=== PATIENT | female | born 1935 | race Caucasian/White ===

== ENCOUNTER → 2018-01-28 | Outpatient (CLI) | payer OTHER, MEDICAID | LOC: BMCIMAGING 12:34 | PROVIDERS: ATTEND Family Medicine | DX: Z12.31 Encounter for screening mammogram for malignant neoplasm of breast (principal); Z85.3 Personal history of malignant neoplasm of breast; Z90.13 Acquired absence of bilateral breasts and nipples ==

== ENCOUNTER 2018-10-07 13:41 | Observation (INO) | payer OTHER, MEDICAID ==
[2018-10-07 14:16] LABS: PLATELET COUNT 254 10^3/uL (150-400)
[2018-10-07 15:00] LABS: INR 1.1 (0.83-1.16); PROTIME(PATIENT) 13.8 SEC (12.0-15.0)
[2018-10-07] MEDS ORDERED: CEPHALEXIN 500 MG CAP PO ONE (15:31)
--- NOTE | 2018-10-07 16:30 | EDPHY ---
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 She describes the dizziness as a feeling of lightheadedness as if she is "on drugs or drunk". She uses a walker at all times because she has persistent balance difficulty related to her previous stroke. She feels that her walking has worsened because of the dizziness and feels that she has to hold on to things as she walks. This is new for her. She has been feeling some dizziness and lightheadedness over the past month but states that it has been worsening recently. She lives in assisted living and has a nurse that checks on her. She was treated for urinary tract infection within the month and completed a course of antibiotics. Blood work a couple of weeks ago showed a low sodium and she was advised to increase her salt intake. Today she was feeling weak enough and dizzy enough that she was not able to participate in an easy exercise class that she usually does without difficulty. When checked it was noted that her heart rate seemed irregular. She has a history of atrial fibrillation (on metoprolol). REVIEW OF SYSTEMS: A ten system review of systems was performed and is negative with the exception of the items mentioned in the HPI. Past medical history: 1. Left MCA stroke in 2016 2. Atrial fibrillation 3. Hospitalized with hyponatremia in the remote past 4. History of breast cancer status post bilateral mastectomies with 2 additional lumpectomies and breast reconstruction 5. Colon cancer status post partial colectomy in 2014 Social history: She lives in assisted living at [facility]. She formally lived in [place]. She has family in the area. She does not use tobacco or alcohol products. General Appearance: Alert. Vital signs reviewed. Initial heart rate 105, blood pressure 145/86, respiratory rate 16, oxygen saturation 97% on room air. Afebrile. Head: Normocephalic atraumatic. Eyes: Pupils equal and round, no conjunctival injection, no discharge. Anicteric. ENT, Mouth: Mucous membranes are moist, no oropharyngeal erythema or edema. Neck: No lymphadenopathy, supple. Respiratory: Lungs are clear to auscultation; no wheezes, rales, or rhonchi. Cardiovascular: Regular rate and rhythm with extrasystoles; no murmur, rub, or gallop. Gastrointestinal: Abdomen is soft and nontender, no masses or organomegaly, bowel sounds normal. Skin: Warm and dry, no rashes on exposed skin, normal color. Back: Nontender to palpation over the thoracolumbar spine. No CVAT. Extremities: No lower extremity edema, no calf tenderness or swelling. Neurological: Alert and oriented. Moving all four extremities easily and equally. Cranial nerves II through XII are examined and are intact (visual acuity not tested). Strength is 5 over 5 on the left and 4/5 on the right with testing of all major motor groups. Sensation is intact to light touch over all 4 extremities. She is able to walk with someone supporting her on the right. [id number] is performed accurately. Psychiatric: Normal affect. - Personal History Current Tetanus Diphtheria and Acellular Pertussis (TDAP): Yes - Medical/Surgical History Hx Asthma: No Hx Chronic Respiratory Disease: No Hx Diabetes: No Hx Cardiac Disease: Yes Hx Renal Disease: No Hx Cirrhosis: No Hx Alcoholism: No Hx HIV/AIDS: No Hx Splenectomy or Spleen Trauma: No Other PMH: A-Fib. CVA - 2016. Breast Cancer. Colon Cancer. Colectomy. - Social History Smoking Status: Never smoked Constitutional: Initial Vital Signs Temperature (C) 36.7 C 10/07/18 13:45 Heart Rate 105 H 10/07/18 13:45 Respiratory Rate 16 10/07/18 13:45 Blood Pressure 145/86 H 10/07/18 13:45 O2 Sat (%) 97 10/07/18 13:45 O2 Delivery Mode Room Air Allergies/Adverse Reactions: morphine Allergy (Severe, Verified 10/07/18 16:54) Itching oxycodone Allergy (Unknown, Verified 10/07/18 16:54) Unknown prednisone Allergy (Unknown, Verified 10/07/18 16:54) Unknown Sulfa (Sulfonamide Antibiotics) Allergy (Unknown, Verified 10/07/18 16:54) Unknown Home Medications: Medication Instructions Recorded Apixaban [Eliquis] 2.5 mg PO BID 10/07/18 Cholecalciferol Vit D3 [Vitamin D3 2,000 units PO DAILY 10/07/18 2000 units tab (OTC)] Cyanocobalamin [Vitamin B12 (*)] 100 mcg PO DAILY 10/07/18 Herbals/Supplements -Info Only 1 ea PO AD 10/07/18 Lactase [Lactase 3000 Unit (*)] 3,000 unit PO AC 10/07/18 Losartan Potassium 100 mg PO HS 10/07/18 Magnesium Hydroxide [Milk of 15 - 30 ml PO DAILY PRN 10/07/18 Magnesia] Metoprolol Tartrate [Lopressor 100 100 mg PO HS 10/07/18 mg (*)] [place]-3 Fatty Acids [Fish Oil 1000 1,000 mg PO DAILY 10/07/18 mg (*)] Omeprazole 20 mg PO DAILY 10/07/18 Ondansetron Odt [Zofran Odt 4 mg 4 mg PO Q6HRS PRN 10/07/18 (*)] Sennosides [Senokot] 17.2 mg PO DAILY PRN 10/07/18 Sennosides [Senokot] 17.2 mg PO HS 10/07/18 Simethicone [Gas-X] 125 mg PO QID PRN 10/07/18 amLODIPine BESYLATE [Norvasc 5 mg 5 mg PO HS 10/07/18 (*)] diphenhydrAMINE [Benadryl 25 MG 25 mg PO HS PRN 10/07/18 (*)] rOPINIRole HCL [Requip] 0.25 mg PO BID@12,20 10/07/18 Medical Decision Making - Diagnostics EKG Interpretation: 12 lead EKG is interpreted in [place] by emergency department physician. Initial EKG shows ventricular trigeminy. ED Course/Re-evaluation: 83-year-old female who lives in assisted living with complaints of lightheadedness and dizziness. She has not fainted, but has thought that she might do so. The dizziness does not sound like vertigo. The symptoms are prevalent enough that they have been impacting her daily activities in keeping her from moving about as she normally would. There was some concern about an irregular pulse at [facility]. She has a history of atrial fibrillation for which she has been taking metoprolol. She is also taking blood pressure medication with a blood pressure of 145/86 in the emergency department. I have not seen atrial fibrillation--not on her EKG and not on the corporate communications intern. However arrhythmia is certainly a strong consideration in this setting. She is not appear dehydrated and there is nothing in her history to suggest blood loss. She is not febrile and does not complain of pain anywhere. She was recently treated for urinary tract infection. Today's urine is positive for nitrates, leuks that site esterase, bacteria 1+, and white blood cells. She is not symptomatic but I am concerned that this could indicate a urinary tract infection. She was given oral Keflex in the emergency department. She has right-sided weakness and difficulty with balance related to her MCA stroke. Head scan today does not show evidence of bleed or stroke. If today's complaints are related to stroke she would not be eligible for tPA. I do not think that stroke is the most likely possibility. She does have a history of both breast and colon cancer. No evidence of intracranial mass, however the CT scan was performed without contrast. At this point in time I am not recommending additional brain imaging. Differential Diagnosis: Dizziness including but not limited to stroke, cardiac arrhythmia, orthostatic hypotension, peripheral and central causes of vertigo, orthostatic causes including dehydration, and blood loss. - Data Points Laboratory Results: Laboratory Results 10/07/18 14:00 10/07/18 14:00 Microbiology Results: MICROBIOLOGY 10/07/18 14:35 Urine,Clean Catch Urine Culture - Preliminary Gram Neg Bernardo Lactose Digital Hardware Design Engineer One [place] Type Medications Given: Acetaminophen (Tylenol) 650 mg PO Q4HRS PRN PRN Reason: Pain, Mild/Fever, Can Take PO Stop: 04/05/19 17:13 Last Admin: 10/08/18 10:45 Dose: 650 mg Amlodipine Besylate (Norvasc) 5 mg PO HS ANEUDY Stop: 04/05/19 20:59 Last Admin: 10/07/18 20:26 Dose: 5 mg Cholecalciferol (Vitamin D) 2,000 units PO DAILY ANEUDY Stop: 04/06/19 08:59 Last Admin: 10/08/18 08:20 Dose: 2,000 units Sodium Chloride (Ns) 1,000 mls @ 100 mls/hr IV CONT ANEUDY Stop: 04/05/19 17:14 Last Admin: 10/08/18 06:15 Dose: 1,000 mls Lactase (Lactase) 3,000 unit PO AC ANEUDY Stop: 04/05/19 17:29 Last Admin: 10/08/18 11:24 Dose: 3,000 unit Metoprolol Succinate (Toprol Xl) 50 mg PO DAILY ANEUDY Stop: 04/06/19 11:29 Last Admin: 10/08/18 11:34 Dose: 50 mg [id number] Ethyl Esters (Fish Oil) 1,000 mg PO DAILY ANEUDY Stop: 04/06/19 08:59 Last Admin: 10/08/18 08:20 Dose: 1,000 mg Pantoprazole Sodium (Protonix) 40 mg PO DAILY ANEUDY Stop: 04/06/19 08:59 Last Admin: 10/08/18 08:20 Dose: 40 mg Ropinirole HCl (Requip) 0.25 mg PO BID@12,20 ANEUDY Stop: 04/05/19 19:59 Last Admin: 10/08/18 11:24 Dose: 0.25 mg Senna (Senokot) 2 tab PO HS ANEUDY Stop: 04/05/19 20:59 Last Admin: 10/07/18 20:26 Dose: 2 tab Simethicone (Mylicon) 120 mg PO QID PRN PRN Reason: GAS Stop: 04/05/19 18:44 Last Admin: 10/07/18 20:26 Dose: 120 mg Vitamin B Complex (Vitamin B12) 100 mcg PO DAILY ANEUDY Stop: 04/06/19 08:59 Last Admin: 10/08/18 08:20 Dose: 100 mcg Discontinued Medications Apixaban (Eliquis) 2.5 mg PO BID ANEUDY Stop: 04/05/19 20:59 Last Admin: 10/08/18 08:27 Dose: 2.5 mg Cephalexin HCl (Keflex) 500 mg PO EDNOW ONE PRN Reason: Protocol Stop: 10/07/18 15:32 Last Admin: 10/07/18 15:40 Dose: 500 mg Point of Care Test Results: Chemistry 10/07/18 14:09 POC Troponin I 0.00 ng/mL ng/mL (0.00-0.08) Departure - Departure Disposition: [facility] Acute Clinical Impression: Dizziness Urinary tract infection Qualifiers: Urinary tract infection type: acute cystitis Hematuria presence: without hematuria Qualified Code(s): N30.00 - Acute cystitis without hematuria Condition: Fair
[2018-10-07] MEDS ORDERED: PROMETHAZINE HCL 25 MG/ML INJ IVP PRN (17:14)
[2018-10-07] MEDS ORDERED: HYDROCODONE/APAP 5/325 TAB PO PRN (17:14)
[2018-10-07] MEDS ORDERED: ONDANSETRON DISINTEGRATING 4 MG TAB PO PRN (17:14)
[2018-10-07] MEDS ORDERED: ONDANSETRON 4 MG/2 ML VIAL IVP PRN (17:14)
[2018-10-07] MEDS ORDERED: ACETAMINOPHEN 325 MG TAB PO PRN (17:14)
[2018-10-07] MEDS ORDERED: oxyCODONE IR 5 MG TAB PO PRN (17:14)
[2018-10-07] MEDS ORDERED: MAGNESIUM HYDROXIDE 30 ML UDCUP PO PRN (17:18)
[2018-10-07] MEDS ORDERED: SENNOSIDES 1 TAB PO PRN (17:18)
--- NOTE | 2018-10-07 17:25 | PDGENHP ---
History and Physical - Chief Complaint dizziness, lightheadedness - History of Present Illness 83 yo F with PMH that includes large left MCA stroke, as well as a fib, breast and colon cancer and HTN who presents with dizziness and lightheadedness that has been present for at least the last month but was much worse today. She notes that she has had issues with balance and right sided weakness since her stroke, and that has been largely unchanged. She does use a walker and feels as if she needs to hold onto things when she is walking without it, however today while in PT at the assisted living facility she resides in she developed significantly worse dizziness and lightheadedness. She states she did not feel that it was vertigo-like in nature, also denies feeling that she was going to faint, but states she felt very strange, as if her eyes were 'going boing' and as if she were drunk or on drugs. She states that has been the issue she has been having intermittently, worse with exertion, and significantly worse today. She states she is on medication for her BP and for her a fib, and these have not been changed in several years but she wonders if something is being overtreated regardless. She recently moved to [place] and did establish care with cardiology but has not seen them since her initial visit in November 2017. At that time she was told that she should continue her current medications. She notes that whenever her BP is checked it is always 'good', frequently with systolics in the 130s or lower. She is not sure what her usual HR is but states she has been told on occasion that it was noted to be in the 30s and on my exam was in the 50s. History Information - Allergies/Home Medication List Allergies/Adverse Reactions: morphine Allergy (Severe, Verified 10/07/18 16:54) Itching oxycodone Allergy (Unknown, Verified 10/07/18 16:54) Unknown prednisone Allergy (Unknown, Verified 10/07/18 16:54) Unknown Sulfa (Sulfonamide Antibiotics) Allergy (Unknown, Verified 10/07/18 16:54) Unknown Home Medications: Apixaban [Eliquis] 2.5 mg PO BID 10/07/18 [Last Taken Unknown] Cholecalciferol Vit D3 [Vitamin D3 2000 units tab (OTC)] 2,000 units PO DAILY [Last Taken Unknown] Cyanocobalamin [Vitamin B12 (*)] 100 mcg PO DAILY 10/07/18 [Last Taken Unknown] Herbals/Supplements -Info Only 1 ea PO AD 10/07/18 [Last Taken Unknown] Lactase [Lactase 3000 Unit (*)] 3,000 unit PO AC 10/07/18 [Last Taken Unknown] Losartan Potassium 100 mg PO HS 10/07/18 [Last Taken Unknown] Magnesium Hydroxide [Milk of Magnesia] 15 - 30 ml PO DAILY PRN 10/07/18 [Last Taken Unknown] Metoprolol Tartrate [Lopressor 100 mg (*)] 100 mg PO HS 10/07/18 [Last Taken Unknown] [place]-3 Fatty Acids [Fish Oil 1000 mg (*)] 1,000 mg PO DAILY 10/07/18 [Last Taken Unknown] Omeprazole 20 mg PO DAILY 10/07/18 [Last Taken Unknown] Ondansetron Odt [Zofran Odt 4 mg (*)] 4 mg PO Q6HRS PRN 10/07/18 [Last Taken Unknown] Sennosides [Senokot] 17.2 mg PO DAILY PRN 10/07/18 [Last Taken Unknown] Sennosides [Senokot] 17.2 mg PO HS 10/07/18 [Last Taken Unknown] Simethicone [Gas-X] 125 mg PO QID PRN 10/07/18 [Last Taken Unknown] amLODIPine BESYLATE [Norvasc 5 mg (*)] 5 mg PO HS 10/07/18 [Last Taken Unknown] diphenhydrAMINE [Benadryl 25 MG (*)] 25 mg PO HS PRN 10/07/18 [Last Taken Unknown] rOPINIRole HCL [Requip] 0.25 mg PO BID@12,20 10/07/18 [Last Taken Unknown] I have personally reviewed and updated: family history, medical history, social history, surgical history - Past Medical History atrial fibrillation, cancer (colon and breast), CVA (residual balance issues and right sided weakness), GERD, hypertension Additional medical history: restless leg syndrome - Surgical History Reports: cancer surgery (mastectomy, partial colectomy) - Family History Positive for: non-pertinent - Social History Smoking Status: Never smoked Alcohol Use: None Drug Use: None Additional social history: resides at [facility] Review of Systems Review of Systems: ROS: 10pt was reviewed & negative except for what was stated in HPI & below Physical Exam Physical Exam: Temp Pulse Resp BP Pulse Ox 36.7 C 78 15 116/60 95 10/07/18 15:43 10/07/18 15:43 10/07/18 15:43 10/07/18 15:43 10/07/18 15:43 Constitutional: no apparent distress, appears nourished Eyes: PERRL Ears, Nose, Mouth, Throat: moist mucous membranes, hearing normal Cardiovascular: regular rate and rhythym, no murmur, rub, or gallop, No edema Respiratory: no respiratory distress, no rales or rhonchi Gastrointestinal: normoactive bowel sounds, soft, non-tender abdomen Genitourinary: no bladder tenderness Skin: warm, normal color Musculoskeletal: full muscle strength Neurologic: AAOx3 Psychiatric: interacting appropriately, not anxious, not encephalopathic Lab Data & Imaging Review 10/07/18 14:00 10/07/18 14:00 WBC 8.57 10^3/uL (3.80-9.50) 10/07/18 14:00 RBC 4.28 10^6/uL (4.18-5.33) 10/07/18 14:00 Hgb 15.4 g/dL (12.6-16.3) 10/07/18 14:00 Hct 43.2 % (38.0-47.0) 10/07/18 14:00 MCV 100.9 fL (81.5-99.8) H 10/07/18 14:00 MCH 36.0 pg (27.9-34.1) H 10/07/18 14:00 MCHC 35.6 g/dL (32.4-36.7) 10/07/18 14:00 RDW 12.3 % (11.5-15.2) 10/07/18 14:00 Plt Count 254 10^3/uL (150-400) 10/07/18 14:00 MPV 9.4 fL (8.7-11.7) 10/07/18 14:00 Neut % (Auto) 59.1 % (39.3-74.2) 10/07/18 14:00 Lymph % (Auto) 29.6 % (15.0-45.0) 10/07/18 14:00 [place] % (Auto) 8.9 % (4.5-13.0) 10/07/18 14:00 Eos % (Auto) 1.2 % (0.6-7.6) 10/07/18 14:00 Baso % (Auto) 0.7 % (0.3-1.7) 10/07/18 14:00 Nucleat RBC Rel Count 0.0 % (0.0-0.2) 10/07/18 14:00 Absolute Neuts (auto) 5.07 10^3/uL (1.70-6.50) 10/07/18 14:00 Absolute Lymphs (auto) 2.54 10^3/uL (1.00-3.00) 10/07/18 14:00 Absolute Monos (auto) 0.76 10^3/uL (0.30-0.80) 10/07/18 14:00 Absolute Eos (auto) 0.10 10^3/uL (0.03-0.40) 10/07/18 14:00 Absolute Basos (auto) 0.06 10^3/uL (0.02-0.10) 10/07/18 14:00 Absolute Nucleated RBC 0.00 10^3/uL (0-0.01) 10/07/18 14:00 Immature Gran % 0.5 % (0.0-1.1) 10/07/18 14:00 Immature Gran # 0.04 10^3/uL (0.00-0.10) 10/07/18 14:00 PT 13.8 SEC (12.0-15.0) 10/07/18 14:35 INR 1.10 (0.83-1.16) 10/07/18 14:35 APTT 27.8 SEC (23.0-38.0) 10/07/18 14:35 Sodium 134 mEq/L (135-145) L 10/07/18 14:00 Potassium 4.7 mEq/L (3.5-5.2) 10/07/18 14:00 Chloride 101 mEq/L (97-110) 10/07/18 14:00 Carbon Dioxide 22 mEq/l (22-31) 10/07/18 14:00 Anion Gap 11 mEq/L (6-14) 10/07/18 14:00 BUN 16 mg/dL (7-23) 10/07/18 14:00 Creatinine 0.8 mg/dL (0.6-1.0) 10/07/18 14:00 Estimated GFR > 60 10/07/18 14:00 Glucose 100 mg/dL (70-100) 10/07/18 14:00 Calcium 9.7 mg/dL (8.5-10.4) 10/07/18 14:00 POC Troponin I 0.00 ng/mL (0.00-0.08) 10/07/18 14:09 Urine Color YELLOW 10/07/18 14:35 Urine Appearance HAZY 10/07/18 14:35 Urine pH 6.0 (5.0-7.5) 10/07/18 14:35 Ur Specific [place] 1.008 (1.002-1.030) 10/07/18 14:35 Urine Protein NEGATIVE (NEGATIVE) 10/07/18 14:35 Urine Ketones NEGATIVE (NEGATIVE) 10/07/18 14:35 Urine Blood NEGATIVE (NEGATIVE) 10/07/18 14:35 Urine Nitrate POSITIVE (NEGATIVE) H 10/07/18 14:35 Urine Bilirubin NEGATIVE (NEGATIVE) 10/07/18 14:35 Urine Urobilinogen NEGATIVE EU (0.2-1.0) 10/07/18 14:35 Ur Leukocyte Esterase 1+ (NEGATIVE) H 10/07/18 14:35 Urine RBC 1-3 /hpf (0-3) 10/07/18 14:35 Urine WBC 15-25 /hpf (0-3) H 10/07/18 14:35 Ur Epithelial Cells NONE SEEN /lpf (NONE-1+) 10/07/18 14:35 Urine Bacteria 1+ /hpf (NONE SEEN) H 10/07/18 14:35 Urine Mucus TRACE /lpf (NONE-1+) 10/07/18 14:35 Urine Glucose NEGATIVE (NEGATIVE) 10/07/18 14:35 Visualized and Interpreted imaging results: Yes Interpretation: head CT: encephalomalacia related to old left mca stroke Visualized and Interpreted EKG results: Yes EKG Interpretation: Positive for: normal sinsus rhythm EKG additional interpertation: ventricular trigeminy Assessment & Plan Assessment: 83 yo F with PMH of CVA, p a fib, HTN presenting with dizziness and lightheadedness on and off for 1 month # dizzy/lightheaded: patient notes these sxs have been present for at least a month, worse with exertion. Overall does not sound c/w vertigo and perhaps some element of near syncope. Given intermittent bradycardia and BB usage, query symptomatic bradycardia or tachy/shyann syndrome given hx of a fib. Plan to monitor on tele, will hold metoprolol for now as well as losartan given BP of 110/60 in ER. Monitor on tele, serial trops, echo and cardiology consult in am. # p a fib: with HR in the 50s on exam but 110 on arrival and patient notes has been recently in the 30s, holding BB for now unless HR begins to trend up, continue apixaban # HTN: as above, holding BP meds given hypotension on arrival with sxs potentially related to low bp # bacturia/pyuria: no urinary complaints, per patient recently treated for UTI, will await urine cultures, was given keflex in ER # CVA: with residual balance issues and right sided weakness, pt/ot to eval # breast/colon cancer: both in remission reportedly, she has recently established care with oncology here # observation status # Patient new to my care. Old records reviewed and summarized as above. Care plan reviewed with ER doctor including monitoring on tele overnight.
[2018-10-07] MEDS ORDERED: SIMETHICONE 80 MG TAB CHEW PO PRN (18:45)
[2018-10-07] MEDS: LACTASE 3,000 UNIT TAB PO SCH (20:18)
[2018-10-07] MEDS: SENNOSIDES 1 TAB PO SCH (20:26)
[2018-10-07] MEDS: amLODIPine BESYLATE 5 MG TAB PO SCH (20:26)
[2018-10-07] MEDS: APIXABAN 2.5 MG TAB PO SCH (20:27)
[2018-10-07] MEDS: NS 1,000 ML IV SCH (20:31)
--- NOTE | 2018-10-07 20:54 | CPEKG ---
Test Reason : OPEN Blood Pressure : / mmHG Vent. Rate : 074 BPM Atrial Rate : 076 BPM P-R Int : 178 ms QRS Dur : 098 ms QT Int : 409 ms P-R-T Axes : 073 029 035 degrees QTc Int : 454 ms Sinus rhythm Ventricular trigeminy Low voltage, precordial leads Abnormal R-wave progression, early transition Confirmed by Neto Florentino ([id number]) on 10/07/2018 8:53:14 PM Referred By: NETO FLORENTINO Confirmed By:Neto Florentino
[2018-10-07] MEDS ORDERED: diphenhydrAMINE 25 MG CAP PO PRN (21:50)
[2018-10-08] MEDS: NS 1,000 ML IV SCH (06:15)
[2018-10-08] MEDS: PANTOPRAZOLE SODIUM 40 MG TAB PO SCH (08:20)
[2018-10-08] MEDS: CHOLECALCIFEROL VIT D3 2,000 UNITS TAB/CAP PO SCH (08:20)
[2018-10-08] MEDS: LACTASE 3,000 UNIT TAB PO SCH ×3 (08:20→18:00)
[2018-10-08] MEDS: CYANO/VITAMIN B12 100 MCG TAB PO SCH (08:20)
[2018-10-08] MEDS: OMEGA-3 FATTY ACIDS 1,000 MG CAP PO SCH (08:20)
[2018-10-08] MEDS: APIXABAN 2.5 MG TAB PO SCH (08:27)
[2018-10-08] MEDS: METOPROLOL SUCCINATE XR 50 MG TAB PO SCH (11:34)
--- NOTE | 2018-10-08 13:28 | ECHO ---
[email or web address] [address] [address] Main: [phone] Echocardiography Examination Transthoracic Name: JOSÉ DRIVER MR#: [id number] Study Date: 10/08/2018 Study Time: 11:28 AM Date of : 1935 Age: 83 year(s) Height: 160 cm (63 in.) Weight: 63.5 kg (140 lb.) BSA: 1.66 m2 Gender: Female Examination: Echo Contrast: Image Quality: Adequate Rhythm: Heart Rate: BP: 141 mmHg/84 mmHg Indication: PAF/lightheadedness Procedure Staff Referring Physician: Market Research Associate: Mya Day [facility] Reading Physician: Gómez Leal MD Requesting Provider: Ordering Physician: Jacinto Negrete NP Indication: PAF/lightheadedness Measurements Chambers AV/MV Label Value Normal Value Label Value Normal Value LVDd, 2D 4.1 cm (3.9cm - 5.3cm) AV PGmean 3 mmHg LVDs, 2D 2.3 cm (2.1cm - 4cm) MV E Vmax 0.76 m/s IVSd, 2D 0.8 cm (0.6cm - 1.1cm) MV A Vmax 0.54 m/s LVPWd, 2D 0.8 cm MV E/A 1.41 LVEF, BP 74 % (55% - 70%) MV E/E' lateral 7.6 LVEF, 2D 76 % (54% - 74%) MV E/E' septal 9.4 (0.45 - 1.25) LA Volume, BP 85 ml (22ml - 52ml) MV E' septal 0.08 m/s LADs, 2D 3.4 cm (2.7cm - 3.8cm) MV E' lateral 0.1 m/s LAESV index, BP 51.2 ml/m2 MV E/E' mean 8.44 Additional Vessels MV E' mean 0.09 m/s Label Value Normal Value TV/PV AoAsc 3.4 cm Label Value Normal Value AoRoot, MM 3 cm (2.2cm - 3.7cm) RA Pressure 5 mmHg RVSP 30 mmHg TR Pmax 25 mmHg TR Vmax 2.48 m/s Conclusions Patient: JOSÉ DRIVER Study Date: 10/08/2018 Page 1 of 2 11:28 AM Normal left ventricular size and function. LV EF estimated at 70-75% and calculated at 70 4% by Garnett's. Normal left ventricular free wall thickness without regional wall motion abnormalities. Normal diastolic function. Moderate to severe left atrial enlargement. Normal right-sided chamber dimensions. Normal appearing valvular structures. Mild mitral regurgitation. Mild tricuspid regurgitation with a normal estimated RVSP. Findings Left Ventricle: Diastolic dysfunction is indeterminate.. Left ventricle is normal in size. Normal global systolic left ventricular function. The ejection fraction, measured by Simpsons method, is 74 %. EF range is estimated at 70 % - 75 %. Left ventricle wall thickness is normal. There are no regional wall motion abnormalities. Left ventricular diastolic function parameters are normal. IVS: The septum is intact. Right Ventricle: Normal size right ventricle. Right ventricular wall thickness is normal. Right ventricular systolic function is normal. Left Atrium: The left atrium is moderately to severely dilated. IAS: Atrial septal bowing from left to right. Right Atrium: The right atrium is normal in size. Mitral Valve: Mitral valve appears structurally normal. Mild mitral regurgitation. No mitral valve stenosis. Aortic Valve: Aortic leaflets exhibit normal cuspal separation. No aortic valve regurgitation. There is no aortic stenosis. The aortic valve is trileaflet. Nonspecific leaflet thickening. Tricuspid Valve: Tricuspid valve leaflets are normal in appearance and function. Mild tricuspid regurgitation. No tricuspid valve stenosis. Right Ventricular systolic pressure is measured at 30 mmHg. Pulmonary artery pressure normal. Pulmonic Valve: Pulmonic valve is poorly visualized. Pulmonic leaflets exhibit normal cuspal separation. No pulmonic valve regurgitation is evident. There is no pulmonic valve stenosis. Aorta: The aorta is normal. The aortic root size in M-mode measures 3.0 cm. The ascending aorta measures 3.4 cm. Aorta Measurements AoRoot, MM is 3.0 cm. Pericardium: No pericardial effusion. No pleural effusion present. Exam Details Procedure Ordered: Echo Procedure Status: Routine study Image Quality: Adequate Facility Location: Cardiac Echo 1 (No Signature Object) Patient: JOSÉ LOCKN: [id number] Study Date: 10/08/2018 Page 2 of 2 11:28 AM [id number]
--- NOTE | 2018-10-08 14:02 | GCON ---
[f rep st] CONSULTATION CARDIOLOGY CONSULTATION SUPERVISING GAS LEAK TESTER: Dr. Bernal INDICATION FOR CARDIOLOGY CONSULTATION: Lightheadedness with known history of paroxysmal atrial fibrillation. REQUESTING PHYSICIAN FOR CONSULTATION: Dr. Jennings of hospital services. HISTORY OF PRESENT ILLNESS: The patient is an 83-year-old female. She has been seen by our practice [address] Clyde Marcelo. She has significant past history that includes previous CVA of the left MCA, paroxysmal atrial fibrillation, hypertension, breast cancer, colon cancer. Patient reporting over the last month of ongoing dizziness and lightheadedness. She does admit since her CVA she has always had a mild episode of lightheadedness, but feels that this has worsened in the last month. She states significantly worse yesterday when she was at her senior care facility and performing exercises , stating at a point of near syncope yesterday while doing Kegel exercises. Patient informed the nurse at her skilled facility, felt her pulse, and noted extreme bradycardia with rates down into the 30s. She denies of any actual syncope or syncopal events. She does state during this episode she did feel a "fluttering sensation" in her left upper chest. She denies of any chest pressure or pain. Reports no shortness of breath. EMS was called, and she was brought to the [facility] emergency department. Electrocardiogram was done, which noted to be sinus rhythm, normal axis with no significant ST or T-wave abnormalities. She was noted to have unifocal premature ventricular contractions. Laboratory studies were drawn. She was noted to have a negative troponin. No significant abnormality except mildly hyponatremia with sodium at 134. No significant anemia. Normal white blood cell count. She did undergo CT of the head, which noted no acute intracranial hemorrhage and no evidence of acute ischemia, but old left MCA infarction was noted. She has been admitted to [facility] and been on continuous cardiac monitoring. There, she has maintained sinus rhythm with occasional PVC, but no malignant arrhythmias or pauses were noted. She reports, upon my examination today, continuation of lightheadedness but denies of any chest pressure or pain. She reports no recent fevers, chills, or night sweats. Denies of any orthopnea, PND, or syncopal events. Reporting no symptoms suggesting new TIA or CVA. PAST MEDICAL HISTORY: Includes paroxysmal atrial fibrillation, history of breast cancer, history of colon cancer, previous CVA in 2016 with right-sided residuals of weakness, GERD, hypertension. PAST SURGICAL HISTORY: Includes colon resection and mastectomy complete. FAMILY HISTORY: Noncontributory. SOCIAL HISTORY: She lives at [facility]. She denies of any history of smoking. She reports no alcohol use. She denies of any illicit drug use. ALLERGIES: Include morphine, oxycodone, prednisone, and sulfa. HOME MEDICATIONS: Include Benadryl 25 mg p.o. h.s., Gas-X 125 mg p.o. q.i.d. p.r.n., Zofran 4 mg p.o. q.6 hours p.r.n., 3000 units p.o. a.c., Senokot 17.2 mg p.o. daily p.r.n., Milk of Magnesia 5-30 mL p.o. daily p.r.n., losartan 100 mg p.o. h.s., supplements 1 tablet p.o. daily, Norvasc 5 mg p.o. h.s., metoprolol tartrate 100 mg p.o. h.s., omeprazole 20 mg p.o. daily, vitamin D 2000 units p.o. daily, Eliquis 2.5 mg p.o. b.i.d., fish oil 1000 mg p.o. daily, vitamin B12 1000 mcg p.o. daily, Requip 0.25 mg p.o. b.i.d. 12 and 8 o'clock, Senokot 17.2 mg p.o. h.s. REVIEW OF SYSTEMS: 10-point review of systems done on patient all negative except as mentioned above. PHYSICAL EXAMINATION: GENERAL APPEARANCE: Thin, well-groomed, elderly female. She is alert and oriented to person, place, time, and situation. Appears to be under no acute distress. CURRENT VITAL SIGNS: Blood pressure of 131/68, heart rate of 66, sinus rhythm with occasional PVC noted on monitor, respirations 18, saturating 91% on room air. Temperature of 36.7 degrees Celsius. HEENT: Head is normocephalic. Lips and tongue are pink and moist with no signs of cyanosis. Conjunctivae pink. NECK: Trachea is midline. +2 carotid pulses bilateral. No auscultated bruits. No jugular vein distention. RESPIRATORY: Lungs are clear to auscultation. No rhonchi, rales, or wheezes. No accessory muscle use. No intercostal muscle retraction noted. CARDIAC: Regular rate, regular rhythm. S1, S2. No S3, S4 noted. 2/6 systolic murmur noted along left sternal border. ABDOMEN: Soft, nontender, bowel sounds x4 quadrants. No organomegaly. No palpable masses. SKIN: [place], warm, dry. No cyanosis. No clubbing. No peripheral edema. VASCULAR: +2 carotids bilateral, +2 radials bilateral, +1 dorsal pedal and posterior tibial pulses bilateral. STUDIES: Electrocardiogram as mentioned above. CT of the head as mentioned above. LABORATORY STUDIES: On admission, WBC 8.57, hemoglobin of 15.4, hematocrit of 43.2, platelet count of 254, INR of 1.10. Sodium 134, potassium 4.7, chloride 101, CO2 22, BUN 16, creatinine 0.8, glucose 100, calcium 9.7, troponin of 0.00. UA was done, which showed positive for nitrites, +1 leukocytes, 15-25 WBCs, and 1+ bacteria. Patient noted to have normal troponins x2 during the night. ASSESSMENT AND PLAN: Lightheadedness. Patient reporting worsening lightheadedness. Does state that she has these symptoms when lying, sitting, or standing. Was worse yesterday with activity. Reporting no chest pain. Does feel that she had palpitations. Noted to have bradycardia by nursing staff at her senior care facility. Patient with history of paroxysmal atrial fibrillation. Questioning if potentially arrhythmia as a source of her symptoms. She has been on continuous cardiac monitoring since her hospital admission with no malignant pauses or arrhythmias noted. No atrial fibrillation. At this time, I would like her to get an echocardiogram done to evaluate her cardiac structure and function. We will continue her on continuous cardiac monitoring. Her beta josseline of metoprolol tartrate has been held. I would like to resume her but place her on metoprolol succinate at 50 mg q. day, which should be a better long-acting medication than tartrate. Potentially, if no arrhythmias are identified, we may consider placing patient on a long-term 2-week to 1-month monitor as an outpatient setting. Would like her to get orthostatic blood pressures done today. Paroxysmal atrial fibrillation. Patient with noted history of paroxysmal atrial fibrillation. None has been noted since arrival to the hospital. She has been held on beta josseline due to concerns of bradycardia. Will resume metoprolol succinate as mentioned above. She does have a significant CHADS- VASc score of 5 placing her close to a 9% stroke risk per year. She is currently on Eliquis at 2.5 mg p.o. Twice daily. Per guidelines, this is too low of a dose due to her weight being greater than 60 kg and her creatinine is less than 1.5. We will increase her Eliquis up to 5 mg p.o. b.i.d. Echocardiogram as above. I will have them draw TSH level on her for evaluation due to recent concerns of palpitations. Hypertension: Patient's blood pressure appears to be well controlled. Concerning that she was a bit hypotensive when she came in with systolic at 110 , she has been resumed on home dose of amlodipine. She has not been resumed on home dose of losartan. Will restart metoprolol succinate and re-evaluate. Potentially, we may need to restart losartan. Thank you for this consultation. We will be glad to follow along with you. /[id number]/MODL MTDD
--- NOTE | 2018-10-08 14:43 | HOSPPROG ---
Hospitalist Progress Note Assessment/Plan: 83 yo F with PMH of CVA, p a fib, HTN presenting with dizziness and lightheadedness on and off for 1 month. First encounter, chart reviewed. D/W Cardiology # dizzy/lightheaded: -patient notes these sxs have been present on and off for at least a month -worse with exertion -Monitor on tele -cardiology consult # p a fib: -with HR normal -holding BB, adjusted per cards -continue apixaban # HTN: -holding BP meds -await cards eval # bacturia/pyuria: -no urinary complaints -per patient recently treated for UTI -will await urine cultures -was given keflex in ER # CVA: -with residual balance issues and right sided weakness -pt/ot to eval # breast/colon cancer: -both in remission reportedly -she has recently established care with oncology here # Change to inpt status -needs further evaluation of symptoms -cont tele monitoring Subjective: Up in chair. Feels likel something is causing her to be dizzy. Mild headache. Objective: Vital Signs Temp Pulse Resp BP Pulse Ox 36.6 C 74 14 137/71 H 91 L 10/08/18 11:13 10/08/18 13:06 10/08/18 11:13 10/08/18 13:06 10/08/18 11:13 10/07/18 10/08/18 10/09/18 05:59 05:59 05:59 Intake Total 1050 Balance 1050 PT 13.8 SEC (12.0-15.0) 10/07/18 14:35 INR 1.10 (0.83-1.16) 10/07/18 14:35 - Physical Exam Constitutional: no apparent distress, appears nourished, not in pain Eyes: PERRL, anicteric sclera, EOMI Ears, Nose, Mouth, Throat: moist mucous membranes, hearing normal, ears appear normal Cardiovascular: regular rate and rhythym, No JVD, No edema Respiratory: no respiratory distress, no rales or rhonchi, reduced air movement Gastrointestinal: normoactive bowel sounds, No tenderness, No ascites Skin: warm, normal color, No mottled Musculoskeletal: normal joint ROM, no joint effusions, generalized weakness Neurologic: AAOx3 Psychiatric: interacting appropriately, not anxious, not encephalopathic ICD10 Worksheet Patient Problems: Problems Problem Status Onset Dizziness Acute Urinary tract infection Acute
--- NOTE | 2018-10-08 14:44 | CPEKG ---
Test Reason : OPEN Blood Pressure : / mmHG Vent. Rate : 064 BPM Atrial Rate : 078 BPM P-R Int : 176 ms QRS Dur : 098 ms QT Int : 405 ms P-R-T Axes : 074 028 028 degrees QTc Int : 418 ms Sinus rhythm Ventricular trigeminy Abnormal R-wave progression, early transition Borderline T wave abnormalities Confirmed by Baldo Hernandez ([id number]) on 10/08/2018 2:44:09 PM Referred By: Naren Jennings Confirmed By:Baldo Hernandez
[2018-10-08] MEDS: amLODIPine BESYLATE 5 MG TAB PO SCH (20:03)
[2018-10-08] MEDS: APIXABAN 5 MG TAB PO SCH (20:03)
[2018-10-08] MEDS: SENNOSIDES 1 TAB PO SCH (20:03)
[2018-10-09] MEDS: OMEGA-3 FATTY ACIDS 1,000 MG CAP PO SCH (07:54)
[2018-10-09] MEDS: LACTASE 3,000 UNIT TAB PO SCH ×2 (07:54→12:51)
[2018-10-09] MEDS: CHOLECALCIFEROL VIT D3 2,000 UNITS TAB/CAP PO SCH (07:55)
[2018-10-09] MEDS: METOPROLOL SUCCINATE XR 50 MG TAB PO SCH (07:55)
[2018-10-09] MEDS: CYANO/VITAMIN B12 100 MCG TAB PO SCH (07:56)
[2018-10-09] MEDS: APIXABAN 5 MG TAB PO SCH (07:56)
[2018-10-09] MEDS: PANTOPRAZOLE SODIUM 40 MG TAB PO SCH (07:56)
--- NOTE | 2018-10-09 11:29 | PDCARPN ---
Cardiology Progress Note Chief Complaint: Patient reports she would like to go home. Assessment/Plan: Assessment: 83-year-old female with history of that includes previous CVA of the left MCA, paroxysmal atrial fibrillation (CHADS-VAS 6), hypertension, breast cancer, colon cancer. Admitted for lightheadedness with associated palpitations and low blood pressure on 10/07/2018. Reporting no history of chest pain or pressure. Denies of shortness of breath. Was noted by her halfway facilities nurse, of having low heart rates in the 30 during her symptoms. Upon arrival to the hospital, noted to have lower blood pressures with systolic in 110s. Echocardiogram done on 10/08/2018 noting normal LV size with LVEF of 70 75%, no wall motion abnormalities, normal diastolic dysfunction, moderate to severe LA enlargement, normal RV size and systolic function, mild MR, mild TR, RVSP of 30 mm Hg. Patient initially treated with discontinuation of her losartan and metoprolol tartrate. Laboratory studies on admission showing no anemia, normal WBC, mildly low sodium at 1:34 a.m., but left rest of electrolyte renal function within normal limits, negative troponins x3. TSH 2.940. Reinstituted metoprolol succinate yesterday. She has been on continuous cardiac monitoring noting sinus rhythm with PVCs, but no malignant arrhythmias or pauses. 10/09/2018: She reports significant improvement in symptoms, reporting no further episodes of lightheadedness. She denies of any chest pain or pressure. Denies of any episodes of palpitations. Continuous cardiac monitoring showing that she has maintained sinus rhythm with occasional to moderate PVCs, no malignant arrhythmias, no atrial fibrillation, no pauses. Blood pressure appears to be well controlled, this morning at 129/80, with medication changes. Plan: 1. Lightheadedness with palpitations: Patient reports no further events since hospital admission and medication changes. No arrhythmias have been noted to suggest cause of her episodes. I have ordered for her to undergo ZIO 2 week monitoring as an outpatient, for further evaluation of possible arrhythmias. 2. Paroxysmal atrial fibrillation: None noted during hospitalization. Continue on new dose of metoprolol succinate 50 mg p.o. Q.day. Patient to continue on Eliquis at 5 mg p.o. Twice daily. 2 week monitor, as mentioned above, will help determine AFib burden. 3. Hypertension: Blood pressure appears to be well controlled at this time, will plan on leaving her on home dose of amlodipine, metoprolol succinate as mentioned above. Would discontinue her losartan at this time, we may consider resuming at an outpatient setting. She has been asked to continue monitoring her blood pressure on a daily basis, keeping a log, and returning with it for her follow-up office appointment. 4. Valvular heart disease: Echo showing mild MR, mild TR. Rate she shows no signs of heart failure. Will need repeated echocardiogram and 1-2 year for re- evaluation. 5. History of CVA: Patient with residual balance and right-sided weakness, patient reports no change. CTA of head showing no new acute changes. 6. Bacteriuria: Abnormal UA on admission. Was treated with Keflex in the ER. Defer to hospitalist for management. Patient will potentially be discharged today, ZIO monitor will be placed prior to discharge. Have scheduled her for follow-up at our office in approximately 2 -3 weeks after she has completed testing. Patient has been told that if her symptoms worsen again, or new symptoms develop she is to contact the clinic or seek medical attention immediately. 10/09/18 11:26 Subjective: Patient reporting no further episodes of lightheadedness or palpitations. Reports no chest pain or pressure. Denies of any shortness of breath. Denies of orthopnea, PND, near-syncope or syncopal events. Reviewed/Discussed With: hospitalist (Guido Mccallum NP), other (Dr Leal) Objective: Vital Signs (8 Hrs) Temp Pulse Resp BP Pulse Ox 10/09/18 08:18 36.3 C 75 22 H 129/80 H 93 10/09/18 04:00 36.6 C 64 20 134/74 H 94 Intake/Output (24 Hrs) 10/08/18 10/09/18 10/10/18 05:59 05:59 05:59 Intake Total 1050 750 Output Total 1500 Balance 1050 -750 Intake: Oral (ml) 100 750 IV Infused (ml) 950 Ns 1,000 ml @ 100 mls/hr 950 IV CONT ANEUDY Rx#: [id number] Output: Urine (ml) 1500 Toilet 1500 Other: Weight 63.503 kg Number of Voids Bedside Commode 2 Toilet 1 Result Diagrams: 10/07/18 14:00 10/07/18 14:00 Cardiac Labs: Cardiac Lab Results (72 Hrs) 10/08/18 10/07/18 01:55 20:13 Troponin I < 0.012 < 0.012 - Physical Exam Constitutional: no apparent distress Ears, Nose, Mouth, Throat: moist mucous membranes Cardiovascular: regular rate and rhythm, no rubs, no gallops, systolic murmur (1 /6 left sternal border), pulses symmetric bilat Peripheral Pulses: 1+: dorsalis-pedis (R), dorsalis-pedis (L), 2+: carotid (R), carotid (L) Respiratory: clear to auscultate bilat, no crackles, no wheezes Gastrointestinal: normoactive bowel sounds Skin: warm, no edema Neurologic: AAOx3 Psychiatric: cooperative, interactive, following commands ICD10 Worksheet Patient Problems: Problems Problem Status Onset Dizziness Acute Urinary tract infection Acute
[2018-10-09 12:19] VITALS: BP 135/74
--- NOTE | 2018-10-09 13:46 | PDIAF ---
- Diagnosis Diagnosis: Dizzy Code Status: Full Code - Medication Management Discharge Medications: electronically signed and located in the Home Medication List. PICC Care - Routine: N/A - Orders Services needed: Physical Therapy, Occupational Therapy Diet Recommendation: no restrictions on diet - Follow Up Care Current Providers and Referrals: Jesus GANDHI [Primary Care Provider] - As per Instructions Clyde Marcelo MD [Medical Doctor] - (Nawaf FRIEDMAN on 10/30/2018 at 2:00 pm)
--- NOTE | 2018-10-09 14:23 | ASMTCMCOM ---
CM Note CM Note Notes: Met with pt, she lives at [facility]. She was admitted to the hospital for dizziness which has resolved. Ashli from came to [facility] pt and she is ok to return. Ashli was given signed dc orders and signed medlist. CM will arrange transportation back to with [facility] wheelchair. DC Plan: [facility] + PT/OT Date Signed: 10/09/2018 02:22 PM Electronically Signed By:Melonie Hollis RN
--- NOTE | 2018-10-09 14:24 | ASMTLACE ---
LACE Length of stay for Answers: 2 days current admission Acuity / Level of Answers: No Care: Did the patient have an inpatient admission? Comorbidities - select Answers: Cerebrovascular disease all that apply (CVA, TIA, aneurysms, vasc ular dementia) Other Notes: AFib; Hx of breast and colon cancer # of Emergency department Answers: 1-2 visits in the last 6 months Score: 5 Date Signed: 10/09/2018 02:24 PM Electronically Signed By:Melonie Hollis RN
--- NOTE | 2018-10-09 14:45 | GDS ---
[f rep st] DISCHARGE SUMMARY DISCHARGE DIAGNOSES: 1. Dizziness with lightheaded. 2. History of paroxysmal atrial fibrillation. 3. History of hypertension. 4. Pyuria. 5. History of cerebrovascular accident. 6. History of breast and colon cancer. CONSULTATIONS: Cardiology. STUDIES AND PROCEDURES DONE: 1. Echocardiogram. 2. CT of the head. PHYSICAL EXAM: GENERAL: The patient is alert. VITAL SIGNS: Afebrile at 36.4, pulse 67, respirator y rate 16, blood pressure is 135/74, saturating 92% on room air. I have seen and evaluated the patient on the day of discharge. HOSPITAL COURSE: The patient is an 83-year-old female who presented to the emergency room with compl aints of dizziness. She was evaluated and diagnosed with: 1. Dizziness with lightheadedness. This is likely multifactorial in nature. Her medications have b een adjusted during this hospitalization, specifically her losartan as well as her nightly Benadryl h ave been discontinued. She has also been transitioned to long-acting Lopressor. She did receive a c onsultation from Cardiology during this hospitalization with a ZIO monitor being placed prior to disp osition. She states her dizziness is significantly improved today with medication adjustments. 2. History of paroxysmal atrial fibrillation. Again, she did receive a consultation from Cardiology . A ZIO monitor has been placed and she will continue this in the outpatient setting. She has been continued on metoprolol succinate 50 mg p.o. daily as well as Eliquis and will follow with Dr. Clyde cash in the outpatient setting. 3. Hypertension. Her blood pressure is well managed at this time. She will continue her amlodipine as well as her metoprolol; however, her losartan has been discontinued and it is recommended that po tentially will not be re-initiated in the outpatient setting. 4. History of cerebrovascular accident. She has residual baseline right-sided weakness, but is stab le. 5. Valvular heart disease. Echocardiogram showing mild mitral regurgitation, as well as tricuspid r egurgitation. 6. Pyuria. The patient has no symptoms of urinary tract infection. She was treated with 1 dose of Keflex in the emergency room, but her symptoms have not continued. Urine culture was sent demonstrat ing Klebsiella; however, the patient is asymptomatic and will not be treated for this at this time. 7. Disposition. The patient will be discharged to return to [facility] where she normally resides in assisted living. There are no pending studies. DISCHARGE MEDICATIONS: Please refer to EMR form. Medication adjustments include initiation of Topro l-XL 50 mg daily as well as melatonin 3 mg at bedtime. Discontinuation of the patient's Lopressor 10 0 mg at bedtime, as well as her losartan 100 mg at bedtime, and Benadryl 25 mg at bedtime. FOLLOWUP: Followup will be primary care physician as well as Dr. Clyde Marcelo. TIME SPENT: I spent greater than 35 minutes in the care, coordination, and management of this patien t's disposition. /[id number]/MODL
--- NOTE | 2018-10-10 16:07 | ASDISCHSUM ---
Discharge Information Plan Status:Assisted Living Medically Cleared to Leave: Discharge Date:10/09/2018 04:29 PM D/C Disposition:Assisted Living ADT D/C Disposition:Home, Routine, Self-Care Projected Discharge Date:10/09/2018 11:00 AM Transportation at D/C:Medicaid Transportation Discharge Delay Reason: Follow-Up Date:10/09/2018 11:00 AM Discharge Slot: Final Diagnosis: Placement Information Referral Type:Assisted Living Residence Referral ID:[id number] Provider Name:Constantino Woodall Address 1:[address] Phone Number: Address 2:[place] Fax Number: City:[place] Selection Factors: State:[place] Patient Contact Information Contact Name:DEANNA Relationship: Address: Work Phone: City: [facility] Phone: [facility] Code: Email: Financial Information Financial Class:Medicare Advantage Plans Primary Plan Desc:[facility] [employer] Primary Plan Number:[id number] Secondary Plan Desc:[employer] [place] Secondary Plan Number:[id number] Assessment Information LACE LACE Length of stay for Answers: 2 days current admission Acuity / Level of Answers: No Care: Did the patient have an inpatient admission? Comorbidities - select Answers: Cerebrovascular disease all that apply (CVA, TIA, aneurysms, vasc ular dementia) Other Notes: AFib; Hx of breast and colon cancer # of Emergency department Answers: 1-2 visits in the last 6 months Score: 5 Date Signed: 10/09/2018 02:24 PM Electronically Signed By:Melonie Hollis RN [facility] CM Progress Note CM Note CM Note Notes: Met with pt, she lives at [facility] She was admitted to the hospital for dizziness which has resolved. Ashli from came to [facility] and she is ok to return. Ashli was given signed dc orders and signed medlist. will arrange transportation back to with [facility] wheelchair. DC Plan: [facility] + PT/OT Date Signed: 10/09/2018 02:22 PM Electronically Signed By:Melonie Hollis RN Intervention Information
== END 2018-10-09 16:29 ==
LOC: EDUNIT# → F3E 18:18
PROVIDERS: ADMIT Internal Medicine; ATTEND Internal Medicine
DX: R42 Dizziness and giddiness (principal); I48.0 Paroxysmal atrial fibrillation; I35.1 Nonrheumatic aortic (valve) insufficiency; I36.1 Nonrheumatic tricuspid (valve) insufficiency; I69.353 Hemiplegia and hemiparesis following cerebral infarction affecting right non-dominant side; I10 Essential (primary) hypertension; N39.0 Urinary tract infection, site not specified; Z85.3 Personal history of malignant neoplasm of breast; Z85.038 Personal history of other malignant neoplasm of large intestine
CPT/HCPCS: 70450; 93005; 93306; 97116; 97161; 97166; 97535; 99285; G0378; 84484-ER

== ENCOUNTER 2018-11-09 13:25 | Emergency (ER) | payer OTHER, MEDICAID ==
[2018-11-09] MEDS ORDERED: NS 500 ML IV ONE (13:28)
[2018-11-09 13:39] LABS: PLATELET COUNT 252 10^3/uL (150-400)
--- NOTE | 2018-11-09 13:46 | EDPHY ---
H & P Time Seen by Provider: 11/09/18 13:27 HPI/ROS: HPI Palpitations. Heart jumping around. 83-year-old female by ambulance from her [facility] assisted living facility. This patient does have a history of atrial fibrillation. She is currently on Eliquis. Her landscaper helper is Dr. Fletcher. She reports that since 11:45 a.m. This morning she has had palpitations. She describes this as her skipping a beat. Her atrial fibrillation was discovered incidentally during a workup for something else. She states that she does not know when she is in atrial fibrillation. She states that the last time she saw her doctor which was a couple weeks ago she was told that she was not in atrial fibrillation. She states that she did have a couple of cups of coffee which is more and she usually drinks this morning. She reports that soon after this she developed this sensation of palpitations. She denies being short of breath. She denies any chest pain. She also takes metoprolol XR 50 mg in the evening. She has not had this medication today. ROS: Constitutional: No fever, no chills. As above. Eyes: No discharge. No changes in vision. ENT: No sore throat. No nasal congestion or rhinorrhea. Respiratory: No cough. No shortness of breath. Cardiac: No chest pain, as above. Gastrointestinal: No abdominal pain, no vomiting, no diarrhea. Genitourinary: No hematuria. No dysuria or increased frequency with urination. Musculoskeletal: No back pain. No neck pain. No myalgias or arthralgias. Skin: No rashes. Neurological: No headache. No focal weakness or altered sensation. Past medical history: Atrial fibrillation, CVA in 2016. Breast cancer, colon cancer, colectomy. Her landscaper helper is Dr. Fletcher with [facility]. Social history: Nonsmoker. Resides at [facility]. No alcohol. Currently here by herself. Physical Exam: General Appearance: Alert, no distress. This patient is responding to questions appropriately and in full sentences. This patient appears well- hydrated and well-nourished. Eyes: Pupils equal and round no pallor or injection. No lid edema, erythema or injection. Respiratory: There are no retractions, lungs are clear to auscultation with good air movement bilaterally. Cardiovascular: Irregular rate and rhythm. No murmur appreciated. Gastrointestinal: Abdomen is soft and nontender, no masses, bowel sounds normal. No focal tenderness at McBurney's point. No Aldana sign. Neurological: Motor sensory function is grossly intact. Cranial nerves are normal. Cerebellar function is normal. Skin: Warm and dry, no rashes. Musculoskeletal: Neck is supple and nontender. Extremities are symmetrical. All joints range without pain or impingement. Psychiatric: No agitation. No depression. Database: EKG: EKG time is 1:31 p.m.; EKG shows a narrow complex normal sinus rhythm with a ventricular rate of 84. PVCs and probable PACs noted. Second-degree and third- degree AV blocks unlikely. The RI, QRS, QT intervals are within normal limits. There are no ST-T wave changes indicative of ischemic or injury pattern. No evidence of right heart strain. No evidence of hypertrophic cardiomyopathy, WPW , Brugada syndrome. Interpreted by me. Imaging: Chest x-ray AP portable: The cardiac mediastinal silhouette is unremarkable. No evidence of infiltrate or pneumothorax. No acute cardiopulmonary disease process noted. Interpreted by me. Procedures: Emergency department course: Triage vital signs reviewed. She is moderately hypertensive. Triage vital signs are otherwise normal. IV was placed. She was placed on a bilingual customer service. lmsw shows multiple PVCs. She will be given 500 cc of IV normal saline over the next hour. EKG obtained and reviewed by myself. She will be given her usual dose of 50 mg metoprolol XR. 2:10 p.m., patient re-evaluated, resting comfortably at this time. Blood pressure is currently 153/85. lmsw shows a narrow complex sinus rhythm, regular with ventricular rate of 70. Pulse oximetry is currently 97% on room air. 2:40 p.m., the patient was re-evaluated, resting comfortably at this time. lmsw shows a narrow complex sinus rhythm, regular with occasional PVC ventricular rate of 68. She feels comfortable being discharged at this time. I did discussed admission for observation. She does not want to do this. She has a follow-up appointment scheduled with her landscaper helper at [facility] this Sunday. She tells me that her metoprolol was increased to 75 mg daily. I instructed her to take another 25 mg tonight at her usual dosing time. Follow-up and the importance of follow-up was thoroughly reviewed with her. Return to emergency department precautions were discussed thoroughly. All of her questions were answered. She was discharged from the emergency department in good condition. Differential Diagnosis: The differential diagnosis on this patient includes but is not limited to PVCs, PACs. Atrial fibrillation, heart block, pulmonary embolism, acute coronary syndrome, hyperthyroid state unlikely. This represents a partial list of diagnoses considered. These considerations are based on history, physical exam , past history, reassessment and diagnostic testing. Smoking Status: Never smoked Constitutional: Initial Vital Signs Temperature (C) 36.3 C 11/09/18 13:28 Heart Rate 84 11/09/18 13:28 Respiratory Rate 16 11/09/18 13:28 Blood Pressure 164/116 H 11/09/18 13:28 O2 Sat (%) 97 11/09/18 13:28 O2 Delivery Mode Room Air Allergies/Adverse Reactions: morphine Allergy (Severe, Verified 10/07/18 16:54) Itching oxycodone Allergy (Unknown, Verified 10/07/18 16:54) Unknown prednisone Allergy (Unknown, Verified 10/07/18 16:54) Unknown Sulfa (Sulfonamide Antibiotics) Allergy (Unknown, Verified 10/07/18 16:54) Unknown Home Medications: Medication Instructions Recorded Apixaban [Eliquis] 2.5 mg PO BID 10/07/18 Cholecalciferol Vit D3 [Vitamin D3 2,000 units PO DAILY 10/07/18 2000 units tab (OTC)] Cyanocobalamin [Vitamin B12 (*)] 100 mcg PO DAILY 10/07/18 Herbals/Supplements -Info Only 1 ea PO AD 10/07/18 Lactase [Lactase 3000 Unit (*)] 3,000 unit PO AC 10/07/18 Magnesium Hydroxide [Milk of 15 - 30 ml PO DAILY PRN 10/07/18 Magnesia] Monarch-3 Fatty Acids [Fish Oil 1000 1,000 mg PO DAILY 10/07/18 mg (*)] Omeprazole 20 mg PO DAILY 10/07/18 Sennosides [Senokot] 17.2 mg PO DAILY PRN 10/07/18 Sennosides [Senokot] 17.2 mg PO HS 10/07/18 Simethicone [GAS-X] 125 mg PO QID PRN 10/07/18 amLODIPine BESYLATE [Norvasc 5 mg 5 mg PO HS 10/07/18 (*)] rOPINIRole HCL [Requip 0.25mg (RX)] 0.25 mg PO BID@12,20 10/07/18 Acetaminophen [Tylenol 325mg (*)] 650 mg PO Q4HRS PRN tab 10/09/18 Melatonin [Melatonin 3 MG (*)] 3 mg PO HS #90 tab 10/09/18 Metoprolol Succinate Xr [Toprol Xl 50 mg PO DAILY #30 tab 10/09/18 50 mg (*)] Medical Decision Making - Diagnostics Imaging Results: Imaging Impressions Chest X-Ray 11/09/18 13:28 Impression: No evidence for acute cardiopulmonary abnormality. Chronic findings, as above. - Data Points Laboratory Results: Laboratory Results 11/09/18 13:30 11/09/18 13:30 11/09/18 11/09/18 11/09/18 13:30 13:30 13:30 WBC RBC Hgb Hct MCV MCH MCHC RDW Plt Count MPV Neut % (Auto) Lymph % (Auto) Harnett % (Auto) Eos % (Auto) Baso % (Auto) Nucleat RBC Rel Count Absolute Neuts (auto) Absolute Lymphs (auto) Absolute Monos (auto) Absolute Eos (auto) Absolute Basos (auto) Absolute Nucleated RBC Immature Gran % Immature Gran # PT INR APTT Sodium 133 mEq/L L mEq/L (135-145) Potassium 4.5 mEq/L mEq/L (3.5-5.2) Chloride 97 mEq/L mEq/L (97-110) Carbon Dioxide 23 mEq/l mEq/l (22-31) Anion Gap 13 mEq/L mEq/L (6-14) BUN 12 mg/dL mg/dL (7-23) Creatinine 0.6 mg/dL mg/dL (0.6-1.0) Estimated GFR > 60 Glucose 93 mg/dL mg/dL (70-100) Calcium 9.9 mg/dL mg/dL (8.5-10.4) POC Troponin I 0.00 ng/mL ng/mL (0.00-0.08) TSH 2.310 uIU/mL uIU/mL (0.465-4.680) 11/09/18 11/09/18 13:30 13:30 WBC 6.63 10^3/uL 10^3/uL (3.80-9.50) RBC 4.56 10^6/uL 10^6/uL (4.18-5.33) Hgb 16.2 g/dL g/dL (12.6-16.3) Hct 45.7 % % (38.0-47.0) MCV 100.2 fL H fL (81.5-99.8) MCH 35.5 pg H pg (27.9-34.1) MCHC 35.4 g/dL g/dL (32.4-36.7) RDW 11.9 % % (11.5-15.2) Plt Count 252 10^3/uL 10^3/uL (150-400) MPV 9.2 fL fL (8.7-11.7) Neut % (Auto) 60.0 % % (39.3-74.2) Lymph % (Auto) 30.0 % % (15.0-45.0) Harnett % (Auto) 8.4 % % (4.5-13.0) Eos % (Auto) 0.8 % % (0.6-7.6) Baso % (Auto) 0.5 % % (0.3-1.7) Nucleat RBC Rel Count 0.0 % % (0.0-0.2) Absolute Neuts (auto) 3.98 10^3/uL 10^3/uL (1.70-6.50) Absolute Lymphs (auto) 1.99 10^3/uL 10^3/uL (1.00-3.00) Absolute Monos (auto) 0.56 10^3/uL 10^3/uL (0.30-0.80) Absolute Eos (auto) 0.05 10^3/uL 10^3/uL (0.03-0.40) Absolute Basos (auto) 0.03 10^3/uL 10^3/uL (0.02-0.10) Absolute Nucleated RBC 0.00 10^3/uL 10^3/uL (0-0.01) Immature Gran % 0.3 % % (0.0-1.1) Immature Gran # 0.02 10^3/uL 10^3/uL (0.00-0.10) PT 12.9 SEC SEC (12.0-15.0) INR 1.01 (0.83-1.16) APTT 33.9 SEC SEC (23.0-38.0) Sodium Potassium Chloride Carbon Dioxide Anion Gap BUN Creatinine Estimated GFR Glucose Calcium POC Troponin I TSH Medications Given: Discontinued Medications Sodium Chloride (Ns) 500 mls @ 1,000 mls/hr IV EDNOW ONE PRN Reason: Protocol Stop: 11/09/18 13:57 Last Admin: 11/09/18 13:49 Dose: 500 mls Metoprolol Succinate (Toprol Xl) 50 mg PO EDNOW ONE Stop: 11/09/18 13:48 Last Admin: 11/09/18 13:54 Dose: 50 mg Point of Care Test Results: Chemistry 11/09/18 13:30 POC Troponin I 0.00 ng/mL ng/mL (0.00-0.08) Departure - Departure Disposition: Home, Routine, Self-Care Clinical Impression: PVCs (premature ventricular contractions) Condition: Good Instructions: Premature Ventricular Contractions (ED) Additional Instructions: Read and follow provided instructions. Follow-up with your landscaper helper at [facility] as scheduled this Sunday as discussed. Take your medication as prescribed. Take 25 mg of metoprolol tonight at the time of your regularly scheduled dosing as discussed. Return to the emergency department for worsening symptoms, worsening palpitations, chest pain, shortness of breath or other serious concerns. Referrals: Patient,NotPresent [Unknown] - As per Instructions
[2018-11-09 13:47] LABS: INR 1.01 (0.83-1.16); PROTIME(PATIENT) 12.9 SEC (12.0-15.0)
[2018-11-09] MEDS ORDERED: METOPROLOL SUCCINATE XR 25 MG TAB PO ONE (13:47)
[2018-11-09 15:24] VITALS: BP 129/83
--- NOTE | 2018-11-09 17:33 | ASDISCHSUM ---
Discharge Information Plan Status:Assisted Living Medically Cleared to Leave: Discharge Date:11/09/2018 03:54 PM CM D/C Disposition:Assisted Living ADT D/C Disposition:Home, Routine, Self-Care Projected Discharge Date:11/09/2018 03:54 PM Transportation at D/C:Cab Voucher Discharge Delay Reason: Follow-Up Date:11/09/2018 03:54 PM Discharge Slot: Final Diagnosis: Placement Information Patient Contact Information Contact Name:DEANNA Relationship: Address: Work Phone: City: [facility] Phone: State/[place] Code: Email: Financial Information Financial Class:Medicare Advantage Plans Primary Plan Desc:[facility] [employer] Primary Plan Number:[id number] Secondary Plan Desc:[employer] Secondary Plan Number:[id number] Assessment Information Intervention Information Intervention Type:Cab Vouchers Date of Service:11/09/2018 05:24 PM Patient Type:Emergency Room Staff Member:FUAD Daniel Sharon Hours:0.25 Discipline:Smocking Machine Operator Severity: Comment:Arranged a Lyft ride via [employer] and called [facility] to ensure they were aware of pt's ETA and needing staff to meet her at the c ab w/her walker or a WC and assist her to her room. Intervention Type:Transportation Date of Service:11/09/2018 05:24 PM Patient Type:Emergency Room Staff Member:FUAD Daniel Sharon Hours:0.5 Discipline:Smocking Machine Operator Severity: Comment:Set up a Medicaid Cab (conf# [id number]) to transport pt home to [facility] but after 1.5 hrs of waiting and calling back for an ETA with no success, CM decided to arrange for a Lyft ride so pt can arrive home for dinner. Pt did not have any friends/family that could pick her up and did not have funds to pay for a cab. CM did call [facility] and cancel the Medicaid cab. Intervention Type:Post Acute Communication Date of Service:11/09/2018 05:24 PM Patient Type:Emergency Room Staff Member:FUAD Daniel Sharon Hours:0.25 Discipline:Smocking Machine Operator Severity: Comment:Called [facility] and spoke w/margaret watts and supervisor agency appointments Ronit, and relayed pt's ED visit and DC plan. Per Ronit's request, MELA called [facility] ([phone]) and left a voicemail re:pt's ED visit and DC instructions.
--- NOTE | 2018-11-09 18:29 | CPEKG ---
Test Reason : OPEN Blood Pressure : / mmHG Vent. Rate : 084 BPM Atrial Rate : 086 BPM P-R Int : 165 ms QRS Dur : 092 ms QT Int : 398 ms P-R-T Axes : 079 035 058 degrees QTc Int : 471 ms Sinus rhythm Multiple premature complexes, vent & supraven Borderline ST depression, anterior leads Confirmed by Quinton Mast [id number] on 11/09/2018 6:28:42 PM Referred By: Quinton Mast Confirmed By:Quinton Mast
== END 2018-11-09 15:54 | disposition home or self-care (01) ==
LOC: EDUNIT#
DX: I49.3 Ventricular premature depolarization (principal); E86.9 Volume depletion, unspecified; Z79.01 Long term (current) use of anticoagulants
CPT/HCPCS: 84484-ER